=== PATIENT | female | born 1995 | race African-American/Black ===

== ENCOUNTER 2019-07-19 06:30 | Inpatient (IN) | payer OTHER ==
[2019-07-19] MEDS ORDERED: DEXTROSE 5%-LACTATED RINGERS 500 ML IV ONE ×2 (08:15→09:15)
[2019-07-19] MEDS ORDERED: BUTORPHANOL TARTRATE 1 MG/ML VIAL IVPB ONE (08:56)
[2019-07-19] MEDS ORDERED: PROMETHAZINE HCL 25 MG/1 ML VIAL IVPUSH ONE (08:56)
[2019-07-19] MEDS ORDERED: ONDANSETRON 4 MG/2 ML VIAL IVPB PRN (08:58)
[2019-07-19] MEDS ORDERED: DEXTROSE 5%-LACTATED RINGERS 1,000 ML IV SCH ×2 (09:00→11:15)
[2019-07-19] MEDS ORDERED: ONDANSETRON 4 MG/2 ML VIAL ONE (09:01)
--- NOTE | 2019-07-19 09:05 | HP ---
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: Alzheimer's, CVA, Dementia, Migraine, Multiple Sclerosis, Peripheral Neuropathy, Parkinson's, Seizure, Syncope, TIA, Vertigo, Other Cardiovascular: No: AFIB, Aneurysm, Aortic Insufficiency, Aortic Stenosis, CAD, CHF, Deep Vein Thrombosis, HTN, Hyperlipdemia, VT, Mitral Insufficiency, Mitral Stenosis, Murmur, Pulmonary Hypertension, Other Pulmonary: No: Asthma, Bronchitis, Cancer, COPD, O2 Dependent, Pneumonia, Previously Intubated, Pulmonary Embolus, Pulmonary Fibrosis, Sleep Apnea, Other Gastrointestinal: No: Ascites, Cancer, Constipation, Crohn's Disease, Diverticulitis, Diverticulosis, Esophageal Varices, Gastritis, GERD, GI Bleed, Hemorrhoids, Hiatal Hernia, Inflamatory Bowel Disease, Irritable Bowel Disease, Pancreatitis, Peptic Ulcer Disease, Ulcerative Colitis, Other Hepatobiliary: No: Cirrhosis, Cholelithiasis, Cholecystitis, Choledocholithiasis , Hepatitis A, Hepatitis B, Hepatitis C, Other Renal/: No: Renal Failure, Renal Inusuff, BPH, Cancer, Hematuria, Hemodialysis , Neurogenic Bladder, Renal Calculi, UTI, Other Reproductive: No: Ectopic , Endometriosis, Fibroids, PID, Polycystic Ovary Syndrome, Postmenopausal, Other ...: 1 ...Para: 0 ...Term: 0 ...: 0 ...Spon : 0 ...Induced : 0 ...LMP: 09/16/18 ... Weeks Gestation by Dates: 40.2 ...EDC by Dates: 07/17/19 Heme/Onc: No: Anemia, B12 Deficiency, Bleeding Disorder, Cancer, Current Chemotherapy, Current Radiation Therapy, Hemochromatosis, Hypercoaguable State, Myeloproliferative Synd, Sickle Cell Disease, Sickle Cell Trait, Thrombocytopenia, Other Infectious Disease: No: AIDS, C-Diff, Herpes Zoster, HIV, MRSA, STD's, Tuberculosis, VREF, Other Psych: No: Addictions, Anxiety, Bipolar, Depression, Panic, Psychosis, Schizophrenia, Other Musculoskeletal: No: Bursitis, Chronic low back pain, Hemiparesis, Hemiplegia, Osteoarthritis, Paraplegia, Other Rheumatology: No: Fibromyalgia, Gout, Lupus, Rheumatoid Arthritis, Sarcoidosis, Vasculitis, Other ENT: No: Allergic Rhinitis, Sinusitis, Other Endocrine: No: Eligio's Disease, Katharina's Disease, Diabetes Insipidus, Diabetes Mellitus, Hyperparathyroidism, Hyperthyroidism, Hypothyroidism, Osteopenia, SIADH, Other Dermatology: No: Basal Cell, Cellulitis, Eczema, Melanoma, Psoriasis, Squamous Cell, Other - Past Surgical History Past Surgical History: No: None, AAA Repair, AICD, Amputation, Appendectomy, Arthrosocopy, AV Fistula/Graft, Bariatric Surgery, Breast Biopsy, Bypass, CABG, Carotid Endarterectomy, Cataract Removal, Cholecystectomy, Colectomy, Colonoscopy, Colostomy, Craniotomy, , Cystectomy, Hernia Repair, Hysterectomy, Ileal Conduit, Ileosotomy, Joint Replacement, Kidney Transplant, Laminectomy, Liver Transplant, Mastectomy, Nephrectomy, Oopherectomy, Orchiectomy, Permanent Pacemaker, Prostatectomy, Splenectomy, Stent, Thoracotomy , TURP, Tonsillectomy, Tubal Ligation, Upper Endoscopy, Valve Replacement, Vasectomy, Vein Stripping/Ligation Hx Myomectomy: No Hx Transabdominal Cerclage: No - Advance Directives Advance Directives: Yes: Living Will - Smoking History Smoking history: Never smoked Have you smoked in the past 12 months: No - Alcohol/Substance Use Hx Alcohol Use: No History of Substance Use: reports: None - Social History Usual Living Arrangement: Yes: With Significant Other Do you think of yourself as: Straight/Heterosexual ADL: Independent History of Recent Travel: No Home Medications - Allergies Allergies/Adverse Reactions: Allergies Allergy/AdvReac Type Severity Reaction Status Date / Time No Known Allergies Allergy Verified 07/19/19 07:25 - Home Medications Home Medications: Ambulatory Orders Vitamins (Sjr) - 1 tab PO DAILY 07/11/19 Family Medical History Family History: Denies Review of Systems - Review of Systems Constitutional: reports: No Symptoms Eyes: reports: No Symptoms HENT: reports: No Symptoms Neck: reports: No Symptoms Cardiovascular: reports: No Symptoms Respiratory: reports: No Symptoms Gastrointestinal: reports: Nausea, Vomiting Genitourinary: reports: No Symptoms Breasts: reports: No Symptoms Reported Musculoskeletal: reports: Back Pain Integumentary: reports: No Symptoms Neurological: reports: No Symptoms Endocrine: reports: No Symptoms Hematology/Lymphatic: reports: No Symptoms Psychiatric: reports: No Symptoms Physical Exam - Maternity Vital Signs: Vital Signs Temperature 98.6 F 07/19/19 06:53 Pulse Rate 86 07/19/19 06:53 Respiratory Rate 19 07/19/19 06:53 Blood Pressure 129/65 07/19/19 06:53 O2 Sat by Pulse Oximetry (%) Constitutional: Yes: Well Nourished, No Distress, Calm Eyes: Yes: WNL, Conjunctiva Clear, EOM Intact HENT: Yes: WNL, Atraumatic, Normocephalic Neck: Yes: WNL, Supple, Trachea Midline Cardiovascular: Yes: WNL, Regular Rate and Rhythm Lungs: Clear to auscultation Breast(s): Yes: WNL - Abdominal Exam/OB Fundal Height: 40 Number of Fetuses: Single Presentation: Vertex Contractions: Yes Regularity: Irregular Intensity: Mild/Mod Monitor Mode: External Heart Rate (range): 150 Heart Rate Location: [facility] Category: I Accelerations: Uniform Decelerations: None - Vaginal Exam/OB Vaginal Bleediing: No Speculum Exam: No Dilatation (cm): 1 Effacement (%): 60 Amniotic Membrane Status: Intact Presentation: Vertex/Position Station: -2 - Physical Exam Musculoskeletal: Yes: Back Pain Extremities: Yes: WNL Edema: Yes Edema: LUE: 1+, RUE: 1+, LLE: 1+, RLE: 1+ Integumentary: Yes: WNL Deep Tendon Reflex Grade: Normal +2 ...Motor Strength: WNL Psychiatric: Yes: WNL, Alert, Oriented Hemorrhage Risk Assessment - Risk Factors Medium Risk Factors: Yes: None High Risk Factors: Yes: None Risk Score: 1 Risk Level: Medium Risk Assessment/Plan early laboring, cx 1 cm, -2, 60%, will give zofran, then possible pitocin later , let pt laboring by herself, she is too uncomfortable
[2019-07-19 09:20] VITALS: BMI 38.9
[2019-07-19 10:27] LABS: BASO % 0.3 % (0-2.0); EOS % 2.1 % (0-4.5); HEMATOCRIT 36.2 % (32.4-45.2); HEMOGLOBIN 12.5 GM/dL (10.7-15.3); LYMPH % 13.3 % (8-40); MCH 28.3 pg (25.7-33.7); MCHC 34.4 g/dl (32.0-36.0); MEAN CELL VOLUME 82.2 fl (80-96); MEAN PLT VOLUME 10.2 fl (7.5-11.1); NEUT % 77.3 % (42.8-82.8); PLATELET COUNT 196 K/MM3 (134-434); RDW 14.6 % (11.6-15.6); WHITE BLOOD COUNT 9.8 K/mm3 (4.0-10.0)
[2019-07-19 10:32] LABS: INR 0.97 (0.83-1.09); PROTHROMBIN TIME (PATIENT) 11.5 SEC (9.7-13.0)
[2019-07-19 10:32] LABS: BLOOD UREA NITROGEN 5.6 mg/dL (7-18); CALCIUM 8.7 mg/dL (8.5-10.1); CREATININE 0.5 mg/dL (0.55-1.3); POTASSIUM 3.5 mmol/L (3.5-5.1)
[2019-07-19 10:35] LABS: ACTIVATED PTT 26.7 SECONDS (25.2-36.5)
[2019-07-19] MEDS ORDERED: BUTORPHANOL TARTRATE 1 MG/ML VIAL ONE ×2 (11:40)
[2019-07-19] MEDS ORDERED: PROMETHAZINE HCL 25 MG/1 ML VIAL ONE (11:40)
[2019-07-19] MEDS: ELECTROLYTE-148 SOLN 1,000 ML IV SCH ×2 (14:45→16:06)
[2019-07-19] MEDS ORDERED: FENTANYL/BUPIVACAINE/NS/PF - PCEA - 50 ML DISP.SYRIN EP ONE ×2 (14:59→20:09)
[2019-07-19] MEDS ORDERED: NALOXONE HCL 0.4 MG/ML VIAL IVPUSH PRN (15:02)
[2019-07-19] MEDS ORDERED: LIDO 2%/EPI 1:200000 PRESRVFRE (20 ML SDVIAL) ONE (15:04)
--- NOTE | 2019-07-19 15:10 | CONSULT ---
Past Medical History, Laborist - Primary Care Physician PCP:: Pierre Hutchins - Admission Chief Complaint: Post dates. Admitted in labor; getting active. History of Present Illness: First baby. EDC 07.17.2019. 40 wks 2 days. Uneventful . GBS neg. 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 Weeks Gestation by Dates: 40.2 ...EDC by Dates: 07/17/19 ...EDC by Sono: 07/17/19 Heme/Onc: Denies/None Infectious Disease: Denies/None Psych: Denies/None Musculoskeletal: Denies/None Rheumatology: Denies/None ENT: Denies/None Endocrine: Denies/None Dermatology: Denies/None - Past Surgical History Past Surgical History: No: None, AAA Repair, AICD, Amputation, Appendectomy, Arthrosocopy, AV Fistula/Graft, Bariatric Surgery, Breast Biopsy, Bypass, CABG, Carotid Endarterectomy, Cataract Removal, Cholecystectomy, Colectomy, Colonoscopy, Colostomy, Craniotomy, , Cystectomy, Hernia Repair, Hysterectomy, Ileal Conduit, Ileosotomy, Joint Replacement, Kidney Transplant, Laminectomy, Liver Transplant, Mastectomy, Nephrectomy, Oopherectomy, Orchiectomy, Permanent Pacemaker, Prostatectomy, Splenectomy, Stent, Thoracotomy , TURP, Tonsillectomy, Tubal Ligation, Upper Endoscopy, Valve Replacement, Vasectomy, Vein Stripping/Ligation - Advance Directives Advance Directives: Yes: Living Will - Smoking History Smoking history: Never smoked Have you smoked in the past 12 months: No - Alcohol/Substance Use Hx Alcohol Use: No History of Substance Use: reports: None - Social History ADL: Independent History of Recent Travel: No Review of Systems - Review of Systems Constitutional: reports: No Symptoms Eyes: reports: No Symptoms HENT: reports: No Symptoms Neck: reports: No Symptoms Cardiovascular: reports: No Symptoms Respiratory: reports: No Symptoms Gastrointestinal: reports: No Symptoms Genitourinary: reports: No Symptoms Breasts: reports: No Symptoms Reported Musculoskeletal: reports: No Symptoms Integumentary: reports: No Symptoms Neurological: reports: No Symptoms Endocrine: reports: No Symptoms Hematology/Lymphatic: reports: No Symptoms Psychiatric: reports: No Symptoms Physical Exam - Maternity Vital Signs: Vital Signs Temperature 99.1 F 07/19/19 14:00 Pulse Rate 76 07/19/19 14:00 Respiratory Rate 20 07/19/19 14:00 Blood Pressure 140/86 07/19/19 14:00 O2 Sat by Pulse Oximetry (%) Constitutional: Yes: Well Nourished, No Distress, Calm Eyes: Yes: WNL, Conjunctiva Clear, EOM Intact HENT: Yes: WNL, Atraumatic, Normocephalic Neck: Yes: WNL, Supple, Trachea Midline Cardiovascular: Yes: WNL, Regular Rate and Rhythm Breast(s): Yes: WNL - Abdominal Exam/OB Fundal Height: 42 Number of Fetuses: Single Presentation: Vertex Contractions: Yes Regularity: Regular Intensity: Moderate Monitor Mode: External Heart Rate (range): 138 Heart Rate Location: [facility] Category: I Accelerations: Uniform Decelerations: None - Vaginal Exam/OB Vaginal Bleediing: No Speculum Exam: No Dilatation (cm): 3 Effacement (%): 50 Amniotic Membrane Status: Intact Presentation: Vertex/Position Station: -2 - Physical Exam Musculoskeletal: Yes: WNL Extremities: Yes: WNL Integumentary: Yes: WNL ...Motor Strength: WNL Psychiatric: Yes: WNL - Labs Lab Results: CBC, BMP 07/19/19 09:22 07/19/19 09:09 Problem List - Problems (1) Post-dates Code(s): O48.0 - POST-TERM (2) Active labor Code(s): [id number] - Assessment/Plan Postdates FH rective. Large baby, not quite engaged, AROM - thick meconium. Continue labor. Will need epidural soon. Observe FH. D/W patient; Dr. Hutchins notified.
[2019-07-19] MEDS ORDERED: FENTANYL/BUPIVACAINE/NS/PF - PCEA - 50 ML DISP.SYRIN EP SCH (15:15)
[2019-07-19] MEDS ORDERED: OXYTOCIN 30 UNITS in 0.9% NS 30 UNIT/500 ML INFUS.BAG IVPB ONE (16:29)
[2019-07-19] MEDS ORDERED: OXYTOCIN 30 UNITS in 0.9% NS 30 UNIT/500 ML INFUS.BAG IVPB SCH (16:45)
--- NOTE | 2019-07-19 23:11 | HP ---
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: Alzheimer's, CVA, Dementia, Migraine, Multiple Sclerosis, Peripheral Neuropathy, Parkinson's, Seizure, Syncope, TIA, Vertigo, Other Cardiovascular: No: AFIB, Aneurysm, Aortic Insufficiency, Aortic Stenosis, CAD, CHF, Deep Vein Thrombosis, HTN, Hyperlipdemia, [place], Mitral Insufficiency, Mitral Stenosis, Murmur, Pulmonary Hypertension, Other Pulmonary: No: Asthma, Bronchitis, Cancer, COPD, O2 Dependent, Pneumonia, Previously Intubated, Pulmonary Embolus, Pulmonary Fibrosis, Sleep Apnea, Other Gastrointestinal: No: Ascites, Cancer, Constipation, Crohn's Disease, Diverticulitis, Diverticulosis, Esophageal Varices, Gastritis, GERD, GI Bleed, Hemorrhoids, Hiatal Hernia, Inflamatory Bowel Disease, Irritable Bowel Disease, Pancreatitis, Peptic Ulcer Disease, Ulcerative Colitis, Other Renal/: No: Renal Failure, Renal Inusuff, BPH, Cancer, Hematuria, Hemodialysis , Neurogenic Bladder, Renal Calculi, UTI, Other Reproductive: No: Ectopic , Endometriosis, Fibroids, PID, Polycystic Ovary Syndrome, Postmenopausal, Other ...: 1 ...Para: 0 ...Term: 0 ...: 0 ...Spon : 0 ...Induced : 0 ...LMP: 09/16/18 ... Weeks Gestation by Dates: 40.2 ...EDC by Dates: 07/17/19 ...EDC by Sono: 07/17/19 Heme/Onc: No: Anemia, B12 Deficiency, Bleeding Disorder, Cancer, Current Chemotherapy, Current Radiation Therapy, Hemochromatosis, Hypercoaguable State, Myeloproliferative Synd, Sickle Cell Disease, Sickle Cell Trait, Thrombocytopenia, Other Infectious Disease: No: AIDS, C-Diff, Herpes Zoster, HIV, MRSA, STD's, Tuberculosis, VREF, Other Psych: No: Addictions, Anxiety, Bipolar, Depression, Panic, Psychosis, Schizophrenia, Other Musculoskeletal: No: Bursitis, Chronic low back pain, Hemiparesis, Hemiplegia, Osteoarthritis, Paraplegia, Other Rheumatology: No: Fibromyalgia, Gout, Lupus, Rheumatoid Arthritis, Sarcoidosis, Vasculitis, Other ENT: No: Allergic Rhinitis, Sinusitis, Other Endocrine: No: Eligio's Disease, Katharina's Disease, Diabetes Insipidus, Diabetes Mellitus, Hyperparathyroidism, Hyperthyroidism, Hypothyroidism, Osteopenia, SIADH, Other Dermatology: No: Basal Cell, Cellulitis, Eczema, Melanoma, Psoriasis, Squamous Cell, Other - Past Surgical History Past Surgical History: No: None, AAA Repair, AICD, Amputation, Appendectomy, Arthrosocopy, AV Fistula/Graft, Bariatric Surgery, Breast Biopsy, Bypass, CABG, Carotid Endarterectomy, Cataract Removal, Cholecystectomy, Colectomy, Colonoscopy, Colostomy, Craniotomy, , Cystectomy, Hernia Repair, Hysterectomy, Ileal Conduit, Ileosotomy, Joint Replacement, Kidney Transplant, Laminectomy, Liver Transplant, Mastectomy, Nephrectomy, Oopherectomy, Orchiectomy, Permanent Pacemaker, Prostatectomy, Splenectomy, Stent, Thoracotomy , TURP, Tonsillectomy, Tubal Ligation, Upper Endoscopy, Valve Replacement, Vasectomy, Vein Stripping/Ligation Hx Myomectomy: No Hx Transabdominal Cerclage: No - Advance Directives Advance Directives: Yes: Living Will - Smoking History Smoking history: Never smoked Have you smoked in the past 12 months: No - Alcohol/Substance Use Hx Alcohol Use: No History of Substance Use: reports: None - Social History Usual Living Arrangement: Yes: With Significant Other Do you think of yourself as: Straight/Heterosexual ADL: Independent History of Recent Travel: No Home Medications - Allergies Allergies/Adverse Reactions: Allergies Allergy/AdvReac Type Severity Reaction Status Date / Time No Known Allergies Allergy Verified 07/19/19 07:25 - Home Medications Home Medications: Ambulatory Orders Vitamins (Sjr) - 1 tab PO DAILY 07/11/19 Family Medical History Family History: Denies Review of Systems - Review of Systems Constitutional: reports: No Symptoms Eyes: reports: No Symptoms HENT: reports: No Symptoms Neck: reports: No Symptoms Cardiovascular: reports: No Symptoms Respiratory: reports: No Symptoms Gastrointestinal: reports: No Symptoms Genitourinary: reports: No Symptoms Breasts: reports: No Symptoms Reported Musculoskeletal: reports: No Symptoms Integumentary: reports: No Symptoms Neurological: reports: No Symptoms Endocrine: reports: No Symptoms Hematology/Lymphatic: reports: No Symptoms Psychiatric: reports: No Symptoms Pain Intensity: 7 Physical Exam - Maternity Vital Signs: Vital Signs Temperature 98.2 F 07/19/19 22:00 Pulse Rate 75 07/19/19 19:00 Respiratory Rate 18 07/19/19 19:00 Blood Pressure 107/76 07/19/19 19:00 O2 Sat by Pulse Oximetry (%) 99 07/19/19 19:00 Constitutional: Yes: Well Nourished, No Distress, Calm Eyes: Yes: WNL, Conjunctiva Clear, EOM Intact HENT: Yes: WNL, Atraumatic, Normocephalic Neck: Yes: WNL, Supple, Trachea Midline Cardiovascular: Yes: WNL, Regular Rate and Rhythm Lungs: Clear to auscultation Breast(s): Yes: WNL - Abdominal Exam/OB Fundal Height: 40 Number of Fetuses: Single Presentation: Vertex Contractions: Yes Regularity: Irregular Intensity: Mild/Mod Monitor Mode: External Heart [facility] Category: I Accelerations: Uniform Decelerations: None - Vaginal Exam/OB Vaginal Bleediing: No Speculum Exam: No Dilatation (cm): 1 Effacement (%): 50 Amniotic Membrane Status: Intact Presentation: Vertex/Position Station: -2 - Physical Exam Musculoskeletal: Yes: WNL Extremities: Yes: WNL Edema: Yes Edema: LUE: 1+, RUE: 1+, LLE: 1+, RLE: 1+ Integumentary: Yes: WNL Deep Tendon Reflex Grade: Normal +2 ...Motor Strength: WNL Psychiatric: Yes: WNL, Alert, Oriented - Labs Lab Results: CBC, BMP 07/19/19 09:22 07/19/19 09:09 Hemorrhage Risk Assessment - Risk Factors Medium Risk Factors: Yes: None Risk Score: 1 Risk Level: Medium Risk Assessment/Plan pt is vomiting, in early labor, but c/o severe pain from contractions , will admit for early laboring
--- NOTE | 2019-07-19 23:13 | PN ---
Progress Note (short form) - Note Progress Note: 930 am, 1cm, -2, 50 %, reactive nst, uc q 5 to 6 min, continue laboring , will start pitocin
--- NOTE | 2019-07-19 23:15 | PN ---
Progress Note (short form) - Note Progress Note: 2pm, arom, thick meconium, q5 min uc, asking for epidural , nst reactive , will start pitocin after epidural
--- NOTE | 2019-07-19 23:16 | PN ---
Progress Note (short form) - Note Progress Note: 645 pm, one deep variable deccel, good accel, still 2to 3 cm, -2, 60 5, caput palpated, comfort with epidural, continue pitocin,
--- NOTE | 2019-07-19 23:20 | PN ---
Progress Note (short form) - Note Progress Note: 945 pm, 2 to 3 cm, -2,,60%, maternal temp 99.8 once, nst reactive, no cervical change, will consider c s in 2 to 3 hrs, if no cervical change,
[2019-07-20] MEDS ORDERED: FENTANYL/BUPIVACAINE/NS/PF - PCEA - 50 ML DISP.SYRIN EP ONE (00:16)
[2019-07-20] MEDS ORDERED: CITRIC ACID/SODIUM CITRATE 30 ML UNIT-DOSE CUP PO ONE (00:20)
--- NOTE | 2019-07-20 00:27 | PN ---
Progress Note (short form) - Note Progress Note: 0015 am, cervix still 2 to 3 cm,. 60%, -2, no change, pt c /o pain with epidural , will proceed to c s as f t progress .
[2019-07-20] MEDS ORDERED: ONDANSETRON 4 MG/2 ML VIAL IVPUSH PRN (00:35)
[2019-07-20] MEDS ORDERED: BUPIVACAINE HCL/PF 0.5% (5 MG/ML) 30 ML VIAL IJ ONE (00:36)
--- NOTE | 2019-07-20 01:02 | PN ---
Progress Note (short form) - Note Progress Note: I assisted Dr. Hutchins at primary c/section for the entirety of the case. Problem List - Problems (1) Post-dates Code(s): O48.0 - POST-TERM (2) Active labor Code(s): IGK1415 -
[2019-07-20] MEDS ORDERED: DEXAMETHASONE SOD PHOSPHATE 4 MG/1 ML VIAL ONE (01:06)
[2019-07-20] MEDS ORDERED: KETOROLAC TROMETHAMINE 30 MG/1 ML VIAL ONE (01:06)
[2019-07-20] MEDS ORDERED: ceFAZolin SODIUM 1 GM VIAL ONE (01:09)
[2019-07-20] MEDS ORDERED: SODIUM CHLORIDE 0.9% P/F 10 ML VIAL IJ ONE (01:09)
[2019-07-20] MEDS ORDERED: SENNOSIDES/DOCUSATE COMBO (SENNA PLUS) TABLET (UD) PO PRN (02:10)
[2019-07-20] MEDS ORDERED: METHYLERGONOVINE MALEATE 0.2 MG/1 ML AMP IM PRN (02:10)
[2019-07-20] MEDS ORDERED: oxyCODONE HCL 5 MG TABLET PO PRN (02:10)
[2019-07-20] MEDS ORDERED: IBUPROFEN 800 MG/8 ML IJ IVPB PRN (02:10)
[2019-07-20] MEDS ORDERED: OXYTOCIN 20 UNITS in 0.9% NS 20 UNIT/1,000 ML INFUS.BAG IV SCH (02:15)
--- NOTE | 2019-07-20 02:18 | OP ---
Operative Note - Note: Operative Date: 07/20/19 Pre-Operative Diagnosis: f t progress , thick meconium Operation: primary lt cs Findings: thick meconium , op Post-Operative Diagnosis: Same as Pre-op Surgeon: Pierre Hutchins Director Traffic And Planning: Dion Carmen Anesthesiologist/INGREDIENT HANDLER: Glenn Redding Anesthesia: Epidural Estimated Blood Loss (mls): 800 (no complications ) Operative Report Dictated: Yes
[2019-07-20] MEDS ORDERED: OXYTOCIN 20 UNITS in 0.9% NS 20 UNIT/1,000 ML INFUS.BAG IV ONE (03:22)
[2019-07-20 08:04] LABS: BASO % 0.2 % (0-2.0); HEMATOCRIT 30.9 % (32.4-45.2); HEMOGLOBIN 10.6 GM/dL (10.7-15.3); LYMPH % 8.7 % (8-40); MCH 28.4 pg (25.7-33.7); MCHC 34.4 g/dl (32.0-36.0); MEAN CELL VOLUME 82.5 fl (80-96); MEAN PLT VOLUME 10.4 fl (7.5-11.1); NEUT % 85.1 % (42.8-82.8); PLATELET COUNT 186 K/MM3 (134-434); RBC 3.74 M/mm3 (3.60-5.2); RDW 14.8 % (11.6-15.6); WHITE BLOOD COUNT 15.3 K/mm3 (4.0-10.0)
--- NOTE | 2019-07-20 08:24 | PN ---
Post Progress Note - Subjective Subjective: PPD # 0. Recovering. Good pain control. Gunetr in. Type of Delivery: Primary C/S Vital Signs: Vital Signs Temperature 98.2 F 07/20/19 06:00 Pulse Rate 88 07/20/19 06:00 Respiratory Rate 18 07/20/19 07:00 Blood Pressure 126/77 07/20/19 06:00 O2 Sat by Pulse Oximetry (%) 98 07/20/19 04:00 Breast Exam: Yes: Soft Uterus: Yes: Fundus Firm Incision: Yes: Dressing dry and intact, Sutures intact (Removed dressing. Wound clean and dry.) Abdomen/GI: Yes: Abdomen soft Lochia: Yes: Rubra Lochia, amount: Moderate Extremities: Yes: Calves non-tender - Labs Labs: CBC WBC 9.8 K/mm3 (4.0-10.0) 07/19/19 09:22 RBC 4.40 M/mm3 (3.60-5.2) 07/19/19 09:22 Hgb 12.5 GM/dL (10.7-15.3) 07/19/19 09:22 Hct 36.2 % (32.4-45.2) 07/19/19 09:22 MCV 82.2 fl (80-96) 07/19/19 09:22 MCH 28.3 pg (25.7-33.7) 07/19/19 09:22 MCHC 34.4 g/dl (32.0-36.0) 07/19/19 09:22 RDW 14.6 % (11.6-15.6) 07/19/19 09:22 Plt Count 196 K/MM3 (134-434) 07/19/19 09:22 MPV 10.2 fl (7.5-11.1) 07/19/19 09:22 Absolute Neuts (auto) 7.6 K/mm3 (1.5-8.0) 07/19/19 09:22 Neutrophils % 77.3 % (42.8-82.8) 07/19/19 09:22 Lymphocytes % 13.3 % (8-40) 07/19/19 09:22 Monocytes % 7.0 % (3.8-10.2) 07/19/19 09:22 Eosinophils % 2.1 % (0-4.5) 07/19/19 09:22 Basophils % 0.3 % (0-2.0) 07/19/19 09:22 Nucleated RBC % 0 % (0-0) 07/19/19 09:22 Problem List - Problems (1) Post-dates Code(s): O48.0 - POST-TERM (2) Active labor Code(s): VTN6395 - (3) delivery delivered Code(s): O82 - ENCOUNTER FOR DELIVERY WITHOUT INDICATION Assessment/Plan Doing well. Dressing removed. Incision looks great. Exam WNL. Gunter to d/c in couple of hours. OOB. Diet as tolerated. Encouraged nursing.
[2019-07-20] MEDS: SIMETHICONE 80 MG TAB.CHEW (FP) PO PRN (19:11)
[2019-07-20] MEDS: ACETAMINOPHEN 325 MG TABLET (FP) PO PRN (19:11)
[2019-07-20] MEDS: IBUPROFEN 600 MG TABLET (FP) PO PRN (19:12)
[2019-07-21] MEDS ORDERED: BISACODYL 10 MG SUPP.RECT RC PRN (02:10)
[2019-07-21] MEDS: ACETAMINOPHEN 325 MG TABLET (FP) PO PRN ×2 (06:36→19:42)
[2019-07-21] MEDS: SIMETHICONE 80 MG TAB.CHEW (FP) PO PRN (06:36)
[2019-07-21] MEDS: IBUPROFEN 600 MG TABLET (FP) PO PRN ×3 (06:37→19:42)
[2019-07-21] MEDS: ENOXAPARIN NA (PORCINE) 40 MG/0.4 ML DISP.SYRIN SQ SCH (10:19)
--- NOTE | 2019-07-21 13:10 | PN ---
Progress Note (short form) - Note Progress Note: POD #1 s/p C/s under epidural anesthesia with epidural Duramorph. Patient doing well, ambulating without issue. Pain is controlled, denies headache, puritus or nausea. All questions answered.
[2019-07-21] MEDS: oxyCODONE HCL 5 MG TABLET PO PRN ×2 (15:09→19:43)
--- NOTE | 2019-07-21 21:50 | PN ---
Post Progress Note Post Day: 2 Type of Delivery: Primary C/S Vital Signs: Vital Signs Temperature 98.7 F 07/21/19 10:00 Pulse Rate 83 07/21/19 10:00 Respiratory Rate 20 07/21/19 10:00 Blood Pressure 100/60 07/21/19 10:00 O2 Sat by Pulse Oximetry (%) 98 07/20/19 04:00 Breast Exam: Yes: Soft Uterus: Yes: Fundus Firm, Fundus below umbilicus Incision: Yes: Sutures intact Abdomen/GI: Yes: Abdomen soft, Passing flatus, Tolerating PO Lochia: Yes: Serosa Lochia, amount: Small Extremities: Yes: Calves non-tender Perineum: Yes: Intact Activity: Ambulating (doing well, dc pt home tomorrow ) - Labs Labs: CBC WBC 15.3 K/mm3 (4.0-10.0) H 07/20/19 07:37 RBC 3.74 M/mm3 (3.60-5.2) 07/20/19 07:37 Hgb 10.6 GM/dL (10.7-15.3) L 07/20/19 07:37 Hct 30.9 % (32.4-45.2) L 07/20/19 07:37 MCV 82.5 fl (80-96) 07/20/19 07:37 MCH 28.4 pg (25.7-33.7) 07/20/19 07:37 MCHC 34.4 g/dl (32.0-36.0) 07/20/19 07:37 RDW 14.8 % (11.6-15.6) 07/20/19 07:37 Plt Count 186 K/MM3 (134-434) 07/20/19 07:37 MPV 10.4 fl (7.5-11.1) 07/20/19 07:37 Absolute Neuts (auto) 13.0 K/mm3 (1.5-8.0) H 07/20/19 07:37 Neutrophils % 85.1 % (42.8-82.8) H 07/20/19 07:37 Lymphocytes % 8.7 % (8-40) D 07/20/19 07:37 Monocytes % 6.0 % (3.8-10.2) 07/20/19 07:37 Eosinophils % 0.0 % (0-4.5) D 07/20/19 07:37 Basophils % 0.2 % (0-2.0) 07/20/19 07:37 Nucleated RBC % 0 % (0-0) 07/20/19 07:37
--- NOTE | 2019-07-21 21:58 | DS ---
Physical Exam-PERSONNEL COORDINATOR Vital Signs: Vital Signs Temperature 98.7 F 07/21/19 10:00 Pulse Rate 83 07/21/19 10:00 Respiratory Rate 20 07/21/19 10:00 Blood Pressure 100/60 07/21/19 10:00 O2 Sat by Pulse Oximetry (%) 98 07/20/19 04:00 Constitutional: Yes: Well Nourished, No Distress, Calm Eyes: Yes: WNL, Conjunctiva Clear, EOM Intact HENT: Yes: WNL, Atraumatic, Normocephalic Neck: Yes: WNL, Supple, Trachea Midline Cardiovascular: Yes: WNL, Regular Rate and Rhythm Respiratory: Yes: WNL, Regular, CTA Bilaterally Gastrointestinal: Yes: WNL, Normal Bowel Sounds, Soft ...Rectal Exam: Yes: WNL Renal/: Yes: WNL Pelvis: Yes: WNL External Genitalia: Yes: Normal Internal Exam Deferred: No Vaginal Exam: Yes: Normal Cervix: Yes: Normal Uterus: Yes: Normal Adnexa: Normal: Bilateral ....Post : Yes: Uterus firm, Uterus non-tender Breast(s): Yes: WNL Musculoskeletal: Yes: WNL Extremities: Yes: WNL Edema: Yes Edema: LUE: 1+, RUE: 1+, LLE: 1+, RLE: 1+ Integumentary: Yes: WNL Wound/Incision: Yes: Clean/Dry, Well Approximated Neurological: Yes: WNL, Alert, Oriented ...Motor Strength: WNL Psychiatric: Yes: WNL, Alert, Oriented Labs: CBC, BMP 07/20/19 07:37 07/19/19 09:09 Delivery - Delivery Section: Primary Type of Anesthesia: Epidural EBL (cc): 800 Delivery, Single - Stages of Labor Date 1st Stage Initiatied: 07/19/19 Time 1st Stage Initiated: 15:15 Date of Delivery: 07/20/19 Time of Delivery: 01:19 Time Placenta Delivered: 01:21 - Condition of Infant Order Department Supervisor/[employer]al Meat Packer Present: Yes Name: Blanquita Mark Gender: Female Weight: 3.203 kg Position: OP Total Hours ROM (Hrs/Mins): 10h 29m - 1 Minute Total Score: 8 5 Minutes Total Score: 9 - [place] Feeding Plan Initial Plan: Elected not to breastfeed exclusively throughout hospitalization Discharge Summary Problems reviewed: Yes Reason For Visit: EARLY LABOR Current Active Problems Active labor (Acute) delivery delivered (Acute) Post-dates (Acute) Procedures: Principal: primary lt c s Other Procedures: none Hospital Course: uneventful Health Concerns: none Plan of Treatment: oob as much as poosible Goals: oob as much as possible Condition: Good - Instructions Diet, Activity, Other Instructions: Physical activity Resume your normal everyday activity as tolerated no heavy lifting or exercise until seen by your surgeon. You may walk unlimited kathy of and climb stairs. You may resume driving the car when you feel safe and comfortable behind the wheel. No sexual activity as instructed. Wound care If you have a bandage, leave it on, and keep dry for 48-72 hours. After that time discard the outer bandage. If they are tapes on the skin under the out of bandage leave them in place. They will peel off in the next 7 to 10 days. Do Not Peel them off. You may shower the day after surgery. If there are tapes present on the skin, you may shower over them. Diet There are no dietary restrictions. Eat healthy, high-fiber foods. Drink 6 to 8 glasses of liquid each day. This will assist in keeping your bowels are regular. Pain management You may take Tylenol or acetaminophen or Ibuprofen (for example, Motrin, Advil etc.) from my pain prescription medication is ordered should be taken as prescribed for moderate to severe pain. Call MD for any of the [phone] for 2 weeks appointment Severe pain not relieved by medication Fever of 101 or higher Excessive bleeding or drainage on dressing Inability to urinate Disposition: HOME - Home Medications Comprehensive Discharge Medication List: Ambulatory Orders Vitamins (Sjr) - 1 tab PO DAILY 07/11/19 Prescription Drug Monitoring Program (I-STOP) results: I-STOP reviewed and no issues identified
--- NOTE | 2019-07-21 22:52 | OP ---
DATE OF OPERATION: 07/20/2019 PREOPERATIVE DIAGNOSIS: Failure to progress, thick meconium. POSTOPERATIVE DIAGNOSIS: Failure to progress, thick meconium. PROCEDURE: Primary low transverse section. SURGEON: Pierre Hutchins MD. APPRENTICE PAINTER HAND: Dion Carmen MD. ANESTHESIA: Epidural anesthesia. ANESTHESIOLOGIST: Glenn Redding MD. BLOOD LOSS: About 800 mL. SPECIMEN: Placenta sent to pathology. INDICATION: This is a 23-year-old female patient, came into labor. The patient was admitted on July 19 at 6:30 in the complaining of severe nausea, vomiting, and thuy every 5 to 10 minutes, and the pain level was 7 out of 10. Patient's cervix was only 1 cm, and the patient was ambulating and walking, and the patient was rechecking 2 to 3 hours later. Patient was 2 cm, and patient's pain level was 8 out of 10. Patient was in severe pain, so we kept the patient for early labor process, and the patient received epidural. The patient is thuy every 5 minutes, and , and patient about 2 or 3 o'clock received epidural. Patient's cervix was 2 to 3 cm, 50%, -2, and the patient has epidural, is comfortable, and patient also received Pitocin. So patient had artificial rupture of membrane about 4:30, 5 o'clock. Thick meconium was seen after rupture of membrane, and the patient's heart rate was reactive still at this time, and patient continued in labor with Pitocin, comfortable with epidural, and throughout the night, and at 7 o'clock, 9 o'clock, 11 o'clock, the cervix still no change, at 1 o'clock still no change, about 2-3 cm. Patient has thick meconium. Patient has temperature of 99.81, but went down, but at 1 o'clock decision was made to do a due to failure to progress, and a thick meconium continued to be pouring out of the cervix, so patient agreed. DESCRIPTION OF PROCEDURE: Patient was taken to the OR. Patient already had epidural anesthesia. So the patient was on operating table in supine position, and the epidural was topped off, and the patient was comfortable. So patient's abdomen and pelvis were prepped and draped in the usual sterile manner. Pfannenstiel incision was made. The incision was made through skin, subcutaneous tissue, until the fascia was nicked in the midline. The fascia was extended bilaterally. Intraperitoneal cavity was entered, bladder flap was created. Low transverse section of uterus was entered, baby delivered from OT position. No complication. Baby was handed over to the powerhouse attendant after umbilical cord was doubly clamped and cut. Placenta was removed. Uterus was closed in single layer, good hemostasis, no complications. Patient tolerated procedure well. Bladder flap was closed. Peritoneum was closed. Fascia was closed. Skin was closed. Transferred to recovery room in stable condition. MD REBECA GARDNER/[id number]
[2019-07-22] MEDS: IBUPROFEN 600 MG TABLET (FP) PO PRN ×4 (00:15→19:24)
[2019-07-22] MEDS: ACETAMINOPHEN 325 MG TABLET (FP) PO PRN ×4 (00:17→19:23)
--- NOTE | 2019-07-22 05:14 | PN ---
Post Progress Note Post Day: 3 Type of Delivery: Primary C/S Vital Signs: Vital Signs Temperature 98.9 F 07/21/19 22:00 Pulse Rate 93 H 07/21/19 22:00 Respiratory Rate 18 07/21/19 22:00 Blood Pressure 129/65 07/21/19 22:00 O2 Sat by Pulse Oximetry (%) 98 07/20/19 04:00 Breast Exam: Yes: Soft Uterus: Yes: Fundus Firm Incision: Yes: Dressing dry and intact, Sutures intact Abdomen/GI: Yes: Abdomen soft, Passing flatus, Tolerating PO Lochia: Yes: Serosa Lochia, amount: Small Extremities: Yes: Calves non-tender Perineum: Yes: Intact Activity: Ambulating (dc pt home today ) - Labs Labs: CBC WBC 15.3 K/mm3 (4.0-10.0) H 07/20/19 07:37 RBC 3.74 M/mm3 (3.60-5.2) 07/20/19 07:37 Hgb 10.6 GM/dL (10.7-15.3) L 07/20/19 07:37 Hct 30.9 % (32.4-45.2) L 07/20/19 07:37 MCV 82.5 fl (80-96) 07/20/19 07:37 MCH 28.4 pg (25.7-33.7) 07/20/19 07:37 MCHC 34.4 g/dl (32.0-36.0) 07/20/19 07:37 RDW 14.8 % (11.6-15.6) 07/20/19 07:37 Plt Count 186 K/MM3 (134-434) 07/20/19 07:37 MPV 10.4 fl (7.5-11.1) 07/20/19 07:37 Absolute Neuts (auto) 13.0 K/mm3 (1.5-8.0) H 07/20/19 07:37 Neutrophils % 85.1 % (42.8-82.8) H 07/20/19 07:37 Lymphocytes % 8.7 % (8-40) D 07/20/19 07:37 Monocytes % 6.0 % (3.8-10.2) 07/20/19 07:37 Eosinophils % 0.0 % (0-4.5) D 07/20/19 07:37 Basophils % 0.2 % (0-2.0) 07/20/19 07:37 Nucleated RBC % 0 % (0-0) 07/20/19 07:37
[2019-07-22] MEDS: ENOXAPARIN NA (PORCINE) 40 MG/0.4 ML DISP.SYRIN SQ SCH (09:30)
[2019-07-22] MEDS: SIMETHICONE 80 MG TAB.CHEW (FP) PO PRN ×2 (13:47→19:23)
[2019-07-23] MEDS: IBUPROFEN 600 MG TABLET (FP) PO PRN ×2 (00:40→09:26)
[2019-07-23] MEDS: ACETAMINOPHEN 325 MG TABLET (FP) PO PRN ×2 (00:41→09:26)
[2019-07-23] MEDS: ENOXAPARIN NA (PORCINE) 40 MG/0.4 ML DISP.SYRIN SQ SCH (09:15)
[2019-07-23] MEDS: SIMETHICONE 80 MG TAB.CHEW (FP) PO PRN (09:27)
[2019-07-23 10:24] VITALS: BP 126/76; PULSE 81; TEMP 98.1
== END 2019-07-23 12:30 | disposition home or self-care (01) | DRG 540 ==
LOC: JDEL 06:30 → JLDR 08:50 → J3W 07-20 03:35
PROVIDERS: ADMIT Obstetrics & Gynecology; ATTEND Obstetrics & Gynecology
PROC: 10D00Z1 Extraction of Products of Conception, Low, Open Approach (ICD-10-PCS; principal; 2019-07-20)
DX: O48.0 Post-term pregnancy (principal); O62.0 Primary inadequate contractions; O77.0 Labor and delivery complicated by meconium in amniotic fluid; Z3A.40 40 weeks gestation of pregnancy; Z37.0 Single live birth
CPT/HCPCS: 36415; 80048; 85025; 85610; 85730; 86593; 86850; 86900; 86901; 87389

== ENCOUNTER 2023-12-22 07:10 | Inpatient (IN) | payer OTHER ==
[2023-12-22] MEDS: ELECTROLYTE-148 SOLN 500 ML IV ONE (07:25)
[2023-12-22] MEDS: CITRIC ACID/SODIUM CITRATE 30 ML UNIT-DOSE CUP PO ONE (07:25)
[2023-12-22 07:45] VITALS: BMI 41.6
[2023-12-22] MEDS ORDERED: PHENYLEPHRINE HCL 10 MG/1 ML SINGLE DOSE VIAL ONE (08:02)
[2023-12-22] MEDS ORDERED: ONDANSETRON 4 MG/2 ML VIAL ONE (08:02)
[2023-12-22] MEDS ORDERED: OXYTOCIN 10 UNITS/ML VIAL ONE (08:02)
[2023-12-22] MEDS ORDERED: KETOROLAC TROMETHAMINE 30 MG/1 ML VIAL ONE (08:02)
[2023-12-22] MEDS ORDERED: FENTANYL CITRATE/PF 50 MCG/ML VIAL ONE (08:03)
[2023-12-22] MEDS ORDERED: morphine SULFATE/PF 1 MG/2 ML (2cc Syringe - QUVA) ONE (08:03)
[2023-12-22] MEDS ORDERED: ceFAZolin SODIUM 1 GM VIAL ONE (08:03)
[2023-12-22] MEDS: ELECTROLYTE-148 SOLN 1,000 ML IV SCH (09:14)
[2023-12-22] MEDS ORDERED: ACETAMINOPHEN 325 MG TABLET (FP) PO PRN (09:49)
[2023-12-22] MEDS ORDERED: METHYLERGONOVINE MALEATE 0.2 MG/1 ML AMP IM PRN (09:49)
[2023-12-22] MEDS ORDERED: ACETAMINOPHEN 1000 MG/100 ML BAG IVPB PRN (09:51)
[2023-12-22] MEDS: OXYTOCIN 20 UNITS in 0.9% NS 20 UNIT/1,000 ML INFUS.BAG IV SCH (09:55)
[2023-12-22] MEDS ORDERED: LABETALOL HCL 200 MG TABLET (FP) ONE (10:14)
[2023-12-22] MEDS: LABETALOL HCL 200 MG TABLET (FP) PO SCH (10:20)
[2023-12-22] MEDS ORDERED: ONDANSETRON 4 MG/2 ML VIAL IVPUSH PRN (10:27)
[2023-12-22] MEDS: PRENATAL VITAMINS W/ FOLIC ACID TABLET (FP) PO SCH (11:24)
[2023-12-22] MEDS ORDERED: oxyCODONE HCL 5 MG TABLET PO PRN ×2 (21:49)
[2023-12-22] MEDS: SENNOSIDES/DOCUSATE COMBO (SENNA PLUS) TABLET (UD) PO PRN (22:07)
[2023-12-22] MEDS: FERROUS SO4 325 MG TABLET (FP) PO SCH (22:07)
[2023-12-22] MEDS: SIMETHICONE 80 MG TAB.CHEW (FP) PO PRN (22:07)
[2023-12-22] MEDS: NIFEdipine E.R. 30 MG TABLET PO SCH (22:10)
[2023-12-23] MEDS: IBUPROFEN 800 MG/8 ML IJ IVPB PRN (01:26)
[2023-12-23 06:36] LABS: BASO % 0.5 % (0-2.0); EOS % 0.8 % (0-4.5); HEMATOCRIT 26.4 % (32.4-45.2); HEMOGLOBIN 8.7 GM/dL (10.7-15.3); LYMPH % 19.5 % (8-40); MCH 24.7 pg (25.7-33.7); MCHC 33.1 g/dl (32.0-36.0); MEAN CELL VOLUME 74.6 fl (80-96); MEAN PLT VOLUME 9.5 fl (7.5-11.1); MONO % 8.2 % (3.8-10.2); PLATELET COUNT 184 10^3/uL (134-434); RBC 3.54 M/mm3 (3.60-5.2); RDW 17.1 % (11.6-15.6); WHITE BLOOD COUNT 13.5 K/mm3 (4.0-10.0)
[2023-12-23] MEDS: IBUPROFEN 600 MG TABLET (FP) PO PRN (08:27)
[2023-12-23] MEDS ORDERED: BISACODYL 10 MG SUPP.RECT RC PRN (09:49)
[2023-12-24 00:05] VITALS: RESP 18
[2023-12-25 10:01] VITALS: BP 120/77; PULSE 96; TEMP 97.8
== END 2023-12-25 13:05 | disposition home or self-care (01) | DRG 540 ==
LOC: JLDR 07:10 → J3W 11:55
PROVIDERS: ADMIT Obstetrics & Gynecology; ATTEND Obstetrics & Gynecology
PROC: 10D00Z1 Extraction of Products of Conception, Low, Open Approach (ICD-10-PCS; principal; 2023-12-22)
DX: O34.211 Maternal care for low transverse scar from previous cesarean delivery (principal); O10.92 Unspecified pre-existing hypertension complicating childbirth; N85.8 Other specified noninflammatory disorders of uterus; O99.213 Obesity complicating pregnancy, third trimester; Z3A.39 39 weeks gestation of pregnancy; Z37.0 Single live birth
CPT/HCPCS: 36415; 59409; 80053; 85025; 85610; 85730; 86780; 86803; 86850; 86900; 86901; 87389; 88307-TC; 93005; 93010; 94010